=== PATIENT | female | born 1980 | race Caucasian/White ===

== ENCOUNTER 2018-06-28 13:03 | Emergency (ER) | payer BC ==
[~2018-06-28] VITALS: Ht 162.6 cm; Wt 88.8 kg
[2018-06-28 13:03] VITALS: BP 117/74
[2018-06-28] MEDS ORDERED: IV NORMAL SALINE 1,000ML 1,000 ML IV ONE (13:30)
[2018-06-28] MEDS ORDERED: IOHEXOL 300 MG/ML 75 ML VIAL. IV ONE (13:40)
--- NOTE | 2018-06-28 13:49 | PHYS DOC ---
Past History Past Medical History: No Pertinent History Past Surgical History: No Surgical History Alcohol Use: Occasionally Drug Use: None Adult General Chief Complaint Chief Complaint: SORE THROAT HPI HPI 37-year-old female presents with sore throat. She's had a sore throat for almost 5 days. It is difficult to swallow. She has not had a fever at home. She went to urgent care who said rapid strep was negative, but they noticed a swelling in the left side by the left tonsillar concern for abscess. They sent her to the ED. The patient does have a rapid heart rate 123. She admits to decreased liquid and solid intake. She has had a very minimal dry cough. She feels like her lymph nodes are swollen. She denies shortness of breath. Review of Systems Review of Systems Constitutional: Denies fever or chills [] Eyes: Denies change in visual acuity, redness, or eye pain [] HENT: sore throat [] Respiratory: Denies cough or shortness of breath [] Cardiovascular: No additional information not addressed in HPI [] GI: Denies abdominal pain, nausea, vomiting, bloody stools or diarrhea [] : Denies dysuria or hematuria [] Musculoskeletal: Denies back pain or joint pain [] Integument: Denies rash or skin lesions [] Neurologic: Denies headache, focal weakness or sensory changes [] Endocrine: Denies polyuria or polydipsia [] All other systems were reviewed and found to be within normal limits, except as documented in this note. Physical Exam Physical Exam Constitutional: Well developed, well nourished, no acute distress, non-toxic appearance. [] HENT: Normocephalic, atraumatic, bilateral external ears normal, oropharynx erythematous with swelling on the left side in the peritonsillar area.[] Eyes: PERRLA, EOMI, conjunctiva normal, no discharge. [] Neck: Normal range of motion, no tenderness, supple, no stridor. [] Cardiovascular:Heart rate 123, regular rhythm, no murmur [] Lungs & Thorax: Bilateral breath sounds clear to auscultation [] Abdomen: Bowel sounds normal, soft, no tenderness, no masses, no pulsatile masses. [] Skin: Warm, dry, no erythema, no rash. [] Back: No tenderness, no CVA tenderness. [] Extremities: No tenderness, no cyanosis, no clubbing, ROM intact, no edema. [] Neurologic: Alert and oriented X 3, normal motor function, normal sensory function, no focal deficits noted. [] Psychologic: Affect normal, judgement normal, mood normal. [] Current Patient Data Vital Signs Vital Signs Date Time Temp Pulse Resp B/P (MAP) Pulse Ox O2 Delivery O2 Flow Rate FiO2 06/28/18 13:03 98.6 120 22 99 Room Air EKG EKG [] Radiology/Procedures Radiology/Procedures [] Impressions: Examination: CT soft tissue neck with IV contrast HISTORY: History of throat pain, swelling TECHNIQUE: Axial CT images of the soft tissue neck were performed with IV contrast. Coronal and sagittal reformats are performed . Exposure: One or more of the following individualized dose reduction techniques were utilized for this examination: 1. Automated exposure control 2. Adjustment of the mA and/or kV according to patient size 3. Use of iterative reconstruction technique. FINDINGS: The visualized parotid glands grossly appears unremarkable. The visualized submandibular glands grossly appears unremarkable. There is enlargement of the left tonsil with focal fluid collection identified in the left tonsil measuring 1.9 cm likely abscess. The visualized vallecula, piriform sinuses grossly appears unremarkable. The thyroid gland grossly appears unremarkable. Few prominent bilateral cervical lymph nodes identified in the cervical level II, III region with the largest measuring 1.8 cm in the left cervical level II region. The apical lungs are clear. Moderate joint space loss identified in the cervical spine particularly at C5-C6 vertebral level. IMPRESSION: 1. Enlarged left tonsil likely left tonsillar abscess measuring 1.9 cm. 2. Enlarged bilateral cervical lymph nodes likely reactive cervical lymphadenopathy. Electronically signed by: Smith Shell MD (06/28/2018 2:10 PM) [id number] DICTATED AND SIGNED BY: SMITH SHELL MD DATE: 06/28/18 1410 CC: PATIENCE DUNLAP DO ~ Course & Med Decision Making Course & Med Decision Making Pertinent Labs and Imaging studies reviewed. (See chart for details) The patient's CT is negative for a peritonsillar abscess on the left side of about 1.9 cm. Her labs are unremarkable. I discussed with the patient the option of draining abscess in the ED versus transferring her to another facility to have it drained by an patient care representative. She has elected to have me drain it here in the ED. I will also give her 600 mg of clindamycin by IV. Patient's rapid strep was negative. I was able to aspirate the patient's abscess and drained a small amount of fluid. See Arellano note for more details. I will discharge the patient on clindamycin 300 mg 4 times a day for 14 days. The patient is stable for discharge at this time. [] Dragon Disclaimer Dragon Disclaimer This electronic medical record was generated, in whole or in part, using a voice recognition dictation system. Incision and Drainage Indication: Left side peritonsillar abscess Procedure: T verbal consent was obtained from the patient to aspirate her left- sided peritonsillar abscess. The area was anesthetized with viscous lidocaine. I then aspirated the lesion with an 18-gauge needle on a 12 mL syringe. It was some expression of bloody material. On reexamination, the abscess area was smaller. The patient was given cold water to rinse her mouth and help the bleeding to stop. Hemostasis was achieved. The patient tolerated the procedure well. Complications: None Departure Departure: Impression: Primary Impression: Peritonsillar abscess Disposition: 01 HOME, SELF-CARE Condition: STABLE Patient Instructions: Peritonsillar Abscess, [id number] Scripts Clindamycin Hcl (CLINDAMYCIN HCL) 300 Mg Capsule 1 CAP PO QID for oral infection for 14 Days, #56 CAP Prov: PATIENCE DUNLAP DO 06/28/18 PATIENCE DUNLAP DO Jun 28, 2018 13:49
[2018-06-28 13:52] LABS: BASO % 0 % (0-3); EOS % 0 % (0-3); HEMATOCRIT 39.2 % (36.0-47.0); HEMOGLOBIN 12.7 g/dL (12.0-15.5); LYMPH # 0.9 x10^3/uL (1.0-4.8); LYMPH % 11 % (24-48); MEAN CORPUSCULAR HEMOGLOBIN 28 pg (25-35); MEAN CORPUSCULAR HGB CONC 33 g/dL (31-37); MEAN CORPUSCULAR VOLUME 87 fL (79-100); MONO # 0.9 x10^3/uL (0.0-1.1); MONO % 11 % (0-9); NEUT # 6.4 x10^3uL (1.8-7.7); NEUT % 78 % (31-73); PLATELET COUNT 336 x10^3/uL (140-400); RED BLOOD COUNT 4.53 x10^6/uL (3.50-5.40); RED CELL DISTRIBUTION WIDTH 14.2 % (11.5-14.5); WHITE BLOOD COUNT 8.1 x10^3/uL (4.0-11.0)
[2018-06-28 14:07] LABS: ALBUMIN 3.7 g/dL (3.4-5.0); ALBUMIN/GLOBULIN RATIO 0.8 (1.0-1.7); CALCIUM 9.5 mg/dL (8.5-10.1); CREATININE 0.8 mg/dL (0.6-1.0); GFR 80.3; POTASSIUM 3.8 mmol/L (3.5-5.1); TOTAL BILIRUBIN 0.4 mg/dL (0.2-1.0); TOTAL PROTEIN 8.4 g/dL (6.4-8.2)
--- NOTE | 2018-06-28 14:13 | RAD ---
Examination: CT soft tissue neck with IV contrast HISTORY: History of throat pain, swelling TECHNIQUE: Axial CT images of the soft tissue neck were performed with IV contrast. Coronal and sagittal reformats are performed . Exposure: One or more of the following individualized dose reduction techniques were utilized for this examination: 1. Automated exposure control 2. Adjustment of the mA and/or kV according to patient size 3. Use of iterative reconstruction technique. FINDINGS: The visualized parotid glands grossly appears unremarkable. The visualized submandibular glands grossly appears unremarkable. There is enlargement of the left tonsil with focal fluid collection identified in the left tonsil measuring 1.9 cm likely abscess. The visualized vallecula, piriform sinuses grossly appears unremarkable. The thyroid gland grossly appears unremarkable. Few prominent bilateral cervical lymph nodes identified in the cervical level II, III region with the largest measuring 1.8 cm in the left cervical level II region. The apical lungs are clear. Moderate joint space loss identified in the cervical spine particularly at C5-C6 vertebral level. IMPRESSION: 1. Enlarged left tonsil likely left tonsillar abscess measuring 1.9 cm. 2. Enlarged bilateral cervical lymph nodes likely reactive cervical lymphadenopathy. Electronically signed by: Smith Shell MD (06/28/2018 2:10 PM) [id number]
[2018-06-28] MEDS ORDERED: CLINDAMYCIN 600MG PREMIX 50 ML IV ONE (15:00)
[2018-06-28] MEDS ORDERED: LIDOCAINE 2% VISCOUS 15 ML SOLUTION. SWSW ONE (15:00)
[2018-06-28] MEDS ORDERED: CLIN300C8 PO (15:36)
== END 2018-06-28 15:51 | disposition home or self-care (01) ==
LOC: ER 13:03
DX: J36 Peritonsillar abscess (principal); R59.9 Enlarged lymph nodes, unspecified
CPT/HCPCS: 10021; 36415; 70491; 80053; 85025; 87040; 87070; 87880; 96365; 99284; J3490; Q9967; J7030